=== PATIENT | male | born 1990 | race Caucasian/White ===

== ENCOUNTER 2017-11-13 10:35 | Emergency (ER) | payer OTHER ==
[2017-11-13 11:31] VITALS: RESP 18; TEMP 98.3; O2SAT 100
--- NOTE | 2017-11-13 11:49 | ED PDOC ---
Arrival/HPI - General Chief Complaint: Back Pain Time Seen by Provider: 11/13/17 11:21 Historian: Patient - History of Present Illness Narrative History of Present Illness (Text): 11/13/17 11:48 A 27 year old male presents to the emergency department complaining of bilateral lower back pain for the past few months. Patient states "the pain is in my kidneys", which is exacerbated when sitting up or laying down. He notes his pain has become more constant over the past few days causing him to come in for further evaluation. Patient reports experiencing similar complaints approximately 2 years ago and told he had kidney stones. Patient notes dark colored urine but denies any fever, chills, nausea, vomiting, abdominal pain, chest pain, shortness of breath or any other complaints. Time/Duration: Other (few months) Symptom Course: Worsening (over the past few days) Quality: Other Context: Home Past Medical History - Provider Review Nursing Documentation Reviewed: Yes - Infectious Disease Hx of Infectious Diseases: None - Psychiatric Hx Substance Use: Yes - Surgical History Hx Orthopedic Surgery: Yes (Right middle finger) Family/Social History - Physician Review Nursing Documentation Reviewed: Yes Family/Social History: No Known Family HX Smoking Status: Never Smoked Hx Alcohol Use: Yes Frequency of alcohol use: Few days per week Hx Substance Use: Yes Substance used: Mariquana Allergies/Home Meds Allergies/Adverse Reactions: Allergies No Known Allergies Allergy (Verified 11/13/17 11:07) Review of Systems - Review of Systems Constitutional: absent: Fevers, Night Sweats Respiratory: absent: SOB Cardiovascular: absent: Chest Pain Gastrointestinal: absent: Abdominal Pain, Nausea, Vomiting Genitourinary Male: Other (dark colored urine). absent: Dysuria Musculoskeletal: Back Pain (bilateral lower back pain) Neurological: absent: Headache, Dizziness, Focal Weakness Hemo/Lymphatic: absent: Easy Bleeding Psychiatric: absent: Depression Physical Exam - Physical Exam Narrative Physical Exam (Text): Head: Atraumatic. Normocephalic. Eyes: PERRL. EOMI. Conjunctivae are not pale. ENT: Mucous membranes are moist and intact. Oropharynx is clear and symmetric. Neck: Supple. Full ROM. No JVD. No lymphadenopathy. Cardiovascular: Regular rate. Regular rhythm. No murmurs, rubs, or gallops. Distal pulses are 2+ and symmetric. Pulmonary/Chest: No evidence of respiratory distress. Clear to auscultation bilaterally. No wheezing, rales or rhonchi. Abdominal: Soft and non-distended. There is no tenderness. No rebound, guarding, or rigidity. No organomegaly. Good bowel sounds. Back: Lower lumbar paraspinal tenderness. Positive straight leg test in left lower extremity. No midline tenderness. NO erythema or edema. NO cva tenderness. Extremities: No edema. No cyanosis. No clubbing. Full range of motion in all extremities. No calf tenderness. Skin: Skin is warm and dry. No petechiae. No purpura. Neurological: Alert, awake, and oriented. Motor and sensory exam intact. Psychiatric: Good eye contact. Normal interaction, affect, and behavior. Denies depression. Vital Signs Reviewed: Yes Vital Signs Temp Pulse Resp BP Pulse Ox 11/13/17 14:13 74 18 125/72 100 11/13/17 14:08 74 18 125/72 100 11/13/17 11:25 98.3 F 83 18 132/88 100 Temperature: Afebrile Blood Pressure: Normal Pulse: Regular Respiratory Rate: Normal Appearance: Positive for: Well-Appearing, Non-Toxic, Comfortable Pain Distress: Mild Mental Status: Positive for: Alert and Oriented X 3 Medical Decision Making ED Course and Treatment: 11/13/17 11:48 Impression: A 27 year old male with bilateral lower back pain. Patient notes dark colored urine. Differential Diagnosis included but are not limited to: Lumbar radiculopathy vs. Kidney stone vs. Kidney infection vs. lumbar strain Plan: -- CT abdomen -- Labs -- Urinalysis -- IV fluids -- Reassess and disposition Progress Notes: Patient's abdomen soft and nontender. UA unremarkable. Pain is palpable worse with ROM but no motor or sensory deficits and patient nv intact. Report Date : 11/13/2017 13:00:25 PROCEDURE: CT Abdomen and Pelvis without intravenous contrast Dictator : Sudhir Swan MD IMPRESSION: No evidence of urolithiasis. No acute intra-abdominal findings Given unremarkable UA and CT, suspect likely musculoskeletal etiology of pain. Will d/c with naproxen and follow-up with pmd. 11/15/17 16:29 - Lab Interpretations Lab Results: 11/13/17 12:00 11/13/17 12:00 Lab Results 11/13/17 13:00: Urine Color Yellow, Urine Appearance Clear, Urine pH 7.5, Ur Specific [place] 1.010, Urine Protein Negative, Urine Glucose (UA) Negative, Urine Ketones Negative, Urine Blood Negative, Urine Nitrate Negative, Urine Bilirubin Negative, Urine Urobilinogen 0.2, Ur Leukocyte Esterase Negative 11/13/17 12:00: Sodium 138, Potassium 4.4, Chloride 104, Carbon Dioxide 25, Anion Gap 15, BUN 7, Creatinine 0.7 L, Est GFR ( Amer) > 60, Est GFR (Non -Af Amer) > 60, Random Glucose 79, Calcium 9.6, Total Bilirubin 0.5, AST 27, ALT 36, Alkaline Phosphatase 43, Total Protein 6.3, Albumin 3.9, Globulin 2.3, Albumin/Globulin Ratio 1.7 11/13/17 12:00: WBC 4.7, RBC 5.76, Hgb 12.6 L, Hct 39.3 L, MCV 68.2 L, MCH 21.9 L, MCHC 32.1, RDW 15.6 H, Plt Count 189, MPV 10.5, Gran % 47.8 L, Lymph % (Auto ) 39.9 H, [place] % (Auto) 8.3 H, Eos % (Auto) 3.6, Baso % (Auto) 0.4, Gran # 2.25 , Lymph # 1.9, [place] # 0.4, Eos # 0.2, Baso # 0.02 I have reviewed the lab results: Yes - RAD Interpretation Radiology Orders: 11/13/17 11:49 ABD & PELVIS W/O PO OR IV CONT [CT] Stat - Medication Orders Current Medication Orders: Discontinued Medications Sodium Chloride (Sodium Chloride 0.9%) 1,000 mls @ 100 mls/hr IV .Q10H LUCIO Last Admin: 11/13/17 12:07 Dose: 100 mls/hr eMAR Start Stop Document 11/13/17 12:07 EQ (Rec: 11/13/17 12:07 EQ [facility] [id number][place] Intravenous Solution Start Date 11/13/17 Start Time 12:07 - Scribe Statement The provider has reviewed the documentation as recorded by the Slimibmonisha Downey Provider Scribe Attestation: All medical record entries made by the Scribe were at my direction and personally dictated by me. I have reviewed the chart and agree that the record accurately reflects my personal performance of the history, physical exam, medical decision making, and the department course for this patient. I have also personally directed, reviewed, and agree with the discharge instructions and disposition. Disposition/Present on Arrival - Present on Arrival Any Indicators Present on Arrival: No History of DVT/PE: No History of Uncontrolled Diabetes: No Urinary Catheter: No History of Decub. Ulcer: No History Surgical Site Infection Following: None - Disposition Have Diagnosis and Disposition been Completed?: Yes Diagnosis: Back pain Disposition: HOME/ ROUTINE Disposition Time: 14:00 Patient Plan: Discharge Condition: GOOD Discharge Instructions (ExitCare): Back Pain (ED) Additional Instructions: For any fevers, any chest pain, any shortness of breath, any abdominal pain, any nausea or vomiting, any numbness or tingling, any headaches, any persistent or worsening of any symptoms, get rechecked. Follow-up with your primary care doctor in 1-2 days. Prescriptions: Naproxen 250 mg PO BID PRN #10 tablet PRN Reason: Pain, Mild (1-3) Referrals: [facility] [place] - [facility] [[facility]] - Follow up with primary Forms: [employer] Connect ([place]), WORK NOTE
[2017-11-13] MEDS ORDERED: Sodium Chloride 0.9% 1,000 ML IV SCH (12:00)
[2017-11-13 12:14] LABS: BASO # 0.02 K/mm3 (0.0-2.0); BASO % 0.4 % (0.0-3.0); EOS # 0.2 (0.0-0.7); EOS % 3.6 % (1.5-5.0); GRAN # 2.25 (1.4-6.5); GRAN % 47.8 % (50.0-68.0); HEMOGLOBIN 12.6 g/dL (14.0-18.0); LYMPH # 1.9 (1.2-3.4); LYMPH % 39.9 % (22.0-35.0); MEAN CELL VOLUME 68.2 fl (80.0-105.0); MEAN CORPUSCULAR HEMOGLOBIN 21.9 pg (25.0-35.0); MEAN CORPUSCULAR HGB CONC 32.1 g/dl (31.0-37.0); MEAN PLATELET VOLUME 10.5 fl (7.0-11.0); MONO # 0.4 (0.1-0.6); MONO % 8.3 % (1.0-6.0); RBC 5.76 10^6/uL (3.5-6.1); RED CELL DISTRIBUTION WIDTH 15.6 % (11.5-14.5); WHITE BLOOD COUNT 4.7 10^3/ul (4.5-11.0)
[2017-11-13 12:23] LABS: ALB/GLOB RATIO 1.7 (1.1-1.8); ALBUMIN 3.9 g/dL (3.0-4.8); ALT/SGPT 36 U/L (7-56); AST/SGOT 27 U/L (17-59); BLOOD UREA NITROGEN 7 mg/dL (7-21); CALCIUM 9.6 mg/dL (8.4-10.5); GFR AFRICAN-AMERICAN > 60; GFR NON-AFRICAN AMERICAN > 60
--- NOTE | 2017-11-13 13:02 | CT ---
PROCEDURE: CT Abdomen and Pelvis without intravenous contrast HISTORY: flank pain, urinary symptoms COMPARISON: None. TECHNIQUE: Without contrast.. Contrast Dose: Radiation dose: Total exam DLP = 318 mGy-cm. This CT exam was performed using one or more of the following dose reduction techniques: Automated exposure control, adjustment of the mA and/or kV according to patient size, and/or use of iterative reconstruction technique. FINDINGS: LOWER THORAX: Unremarkable. LIVER: Unremarkable. No gross lesion or ductal dilatation. GALLBLADDER AND BILE DUCTS: Unremarkable. PANCREAS: Unremarkable. No gross lesion or ductal dilatation. SPLEEN: Unremarkable. ADRENALS: Unremarkable. No mass. KIDNEYS AND URETERS: Unremarkable. No hydronephrosis. No solid mass. VASCULATURE: Unremarkable. No aortic aneurysm. BOWEL: Unremarkable. No obstruction. No gross mural thickening. The study is limited by lack of IV and oral contrast and lack of abdominal fat APPENDIX: Unremarkable. Normal appendix. PERITONEUM: Unremarkable. No free fluid. No free air. LYMPH NODES: Unremarkable. No enlarged lymph nodes. BLADDER: Unremarkable. REPRODUCTIVE: Unremarkable. BONES: No acute fracture. OTHER FINDINGS: None. IMPRESSION: No evidence of urolithiasis. No acute intra-abdominal findings
[2017-11-13 13:26] LABS: PH,URINE 7.5 (4.7-8.0); URINE BILIRUBIN NEGATIVE (NEGATIVE); URINE BLOOD NEGATIVE (NEGATIVE); URINE GLUCOSE (UA) NEGATIVE (NEGATIVE); URINE LEUKOCYTE ESTERASE NEGATIVE Leu/uL (NEGATIVE); URINE NITRATE NEGATIVE (NEGATIVE); URINE PROTEIN NEGATIVE mg/dL (<30 mg/dL); URINE UROBILINOGEN 0.2 E.U./dL (<1 E.U./dL)
[2017-11-13 13:27] LABS: URINE APPEARANCE CLEAR (CLEAR); URINE COLOR YELLOW (YELLOW)
[2017-11-13 14:09] VITALS: BP 125/72; PULSE 74
== END 2017-11-13 14:14 | disposition home or self-care (01) ==
LOC: ED 10:35
DX: M54.5 Low back pain (principal)
CPT/HCPCS: 74176; 80053; 81003; 85025; 99283; J7040

== ENCOUNTER 2018-03-10 18:37 | Emergency (ER) | payer OTHER ==
[2018-03-10 19:12] VITALS: BMI 23.1
[2018-03-10] MEDS ORDERED: Lidocaine 1% Inj (20ml) ONE (19:39)
[2018-03-10 19:45] LABS: BASO # 0.02 K/mm3 (0.0-2.0); BASO % 0.2 % (0.0-3.0); EOS # 0.1 (0.0-0.7); EOS % 0.5 % (1.5-5.0); GRAN # 5.71 (1.4-6.5); GRAN % 60.5 % (50.0-68.0); HEMOGLOBIN 13.1 g/dL (14.0-18.0); LYMPH # 3.1 (1.2-3.4); MEAN CELL VOLUME 67.3 fl (80.0-105.0); MEAN CORPUSCULAR HEMOGLOBIN 22.3 pg (25.0-35.0); MEAN CORPUSCULAR HGB CONC 33.2 g/dl (31.0-37.0); MEAN PLATELET VOLUME 9.8 fl (7.0-11.0); MONO # 0.6 (0.1-0.6); MONO % 5.8 % (1.0-6.0); RBC 5.87 10^6/uL (3.5-6.1); RED CELL DISTRIBUTION WIDTH 15.3 % (11.5-14.5); WHITE BLOOD COUNT 9.5 10^3/ul (4.5-11.0)
[2018-03-10 19:56] LABS: INR 1.03 (0.93-1.08); PARTIAL THROMBOPLASTIN TIME 27.4 Seconds (25.1-36.5); PROTHROMBIN TIME 11.7 SECONDS (9.4-12.5)
[2018-03-10 19:57] LABS: ALB/GLOB RATIO 1.7 (1.1-1.8); ALBUMIN 4.2 g/dL (3.0-4.8); ALT/SGPT 29 U/L (7-56); AST/SGOT 29 U/L (17-59); BLOOD UREA NITROGEN 11 mg/dL (7-21); CALCIUM 9.2 mg/dL (8.4-10.5); GFR AFRICAN-AMERICAN > 60; GFR NON-AFRICAN AMERICAN > 60; LIPASE 176 U/L (23-300)
--- NOTE | 2018-03-10 20:04 | CP.PCM.CON ---
<Carol Ann Ashford - Last Filed: 03/10/18 20:27> History of Present Illness - History of Present Illness History of Present Illness: General surgery consult for Dr. Wood-Carol Ann Ashford, PGY-1 Pt S & E at bedside at 1933 27M w/PMH sig for Right inguinal hernia consulted for right groin pain x 2 days. Pt reports that over the past few days he noted pain, constant, non radiating, worsening in intensity. Aggravated by movement, alleviating by not moving. Denies N & V, F & C, changes in bowel or bladder habits, chest pain, SOB , other complaints. In ED- no leukocytosis, afebrile PMH: Right inguinal hernia- reducible PSH: Right finger sx, Right facial lesion exision near ear All: Denies SH: Occasional ETOH use - 1 beer /week, admits to tobacco use - 1ppd x 6 yrs. Denies illcit drug use FH: Non contributory PMD: Rajwinder Foley Review of Systems - Review of Systems All systems: reviewed and no additional remarkable complaints except - Constitutional Constitutional: absent: Chills, Fever - EENT Nose/Mouth/Throat: absent: Sore Throat - Cardiovascular Cardiovascular: absent: Chest Pain, Leg Edema - Respiratory Respiratory: absent: Cough - Gastrointestinal Gastrointestinal: absent: Abdominal Pain, Change in Bowel Habits, Constipation, Diarrhea, Nausea, Vomiting - Genitourinary Genitourinary: absent: Change in Urinary Stream - Musculoskeletal Musculoskeletal: absent: Numbness, Tingling - Integumentary Integumentary: absent: Rash - Neurological Neurological: absent: Weakness - Psychiatric Psychiatric: absent: Change in Appetite Past Patient History - Infectious Disease Hx of Infectious Diseases: None - Past Social History Smoking Status: Never Smoked - PSYCHIATRIC Hx Substance Use: Yes - SURGICAL HISTORY Hx Surgeries: No Hx Orthopedic Surgery: Yes (Right middle finger) - ANESTHESIA Hx Anesthesia: No Meds Allergies/Adverse Reactions: Allergies Allergy/AdvReac Type Severity Reaction Status Date / Time No Known Allergies Allergy Verified 11/13/17 11:07 Physical Exam - Constitutional Appears: Non-toxic, No Acute Distress - Head Exam Head Exam: ATRAUMATIC, NORMAL INSPECTION, NORMOCEPHALIC - Eye Exam Eye Exam: EOMI, Normal appearance - ENT Exam ENT Exam: Mucous Membranes Moist, Normal Exam - Neck Exam Neck exam: Positive for: Full Rom, Normal Inspection - Respiratory Exam Respiratory Exam: Clear to Auscultation Bilateral, NORMAL BREATHING PATTERN - Cardiovascular Exam Cardiovascular Exam: REGULAR RHYTHM, +S1, +S2 - GI/Abdominal Exam GI & Abdominal Exam: Normal Bowel Sounds, Soft. absent: Distended, Firm, Guarding, Hernia, Tenderness - Exam Additional comments: right groin/proximal scrotal sac with small area of erythema, approximately 4cm circumference with central fluctuance, surrounding induration, visible white material under skin in center. Very tender to palpation. No hernia noted - Extremities Exam Extremities exam: Positive for: normal inspection. Negative for: pedal edema - Neurological Exam Neurological exam: Alert, CN II-XII Intact, Oriented x3 - Psychiatric Exam Psychiatric exam: Normal Affect, Normal Mood - Skin Skin Exam: Dry, Intact, Normal Color, Warm Additional comments: see exam for skin findings Results - Vital Signs Recent Vital Signs: Last Vital Signs Temp 98.6 F 03/10/18 19:11 Pulse 70 03/10/18 19:11 Resp 18 03/10/18 19:11 BP 118/66 03/10/18 19:11 Pulse Ox 98 03/10/18 19:11 - Labs Result Diagrams: 03/10/18 19:19 03/10/18 19:32 Labs: Laboratory Results - last 24 hr 03/10/18 03/10/18 03/10/18 19:19 19:19 19:32 WBC 9.5 D RBC 5.87 Hgb 13.1 L Hct 39.5 L MCV 67.3 L MCH 22.3 L MCHC 33.2 RDW 15.3 H Plt Count 183 MPV 9.8 Gran % 60.5 Lymph % (Auto) 33.0 [place] % (Auto) 5.8 Eos % (Auto) 0.5 L Baso % (Auto) 0.2 Gran # 5.71 Lymph # (Auto) 3.1 [place] # (Auto) 0.6 Eos # (Auto) 0.1 Baso # (Auto) 0.02 PT 11.7 INR 1.03 APTT 27.4 Sodium 144 Potassium 3.9 Chloride 106 Carbon Dioxide 27 Anion Gap 15 BUN 11 Creatinine 0.7 L Est GFR ( Amer) > 60 Est GFR (Non-Af Amer) > 60 Random Glucose 85 Calcium 9.2 Magnesium 1.9 Total Bilirubin 0.1 L AST 29 ALT 29 Alkaline Phosphatase 44 Total Protein 6.6 Albumin 4.2 Globulin 2.5 Albumin/Globulin Ratio 1.7 Lipase 176 Assessment & Plan - Assessment and Plan (Free Text) Assessment: 27M w/PMH sig for Right inguinal hernia with small abscess of right groin Plan: Recommend bedside I & D for small abscess ED attending elected to perform procedure No further surgical intervention at this time Will DW attending [place], PGY-1 - Date & Time Date: 03/10/18 Time: 19:30 <Darryl Wood - Last Filed: 03/11/18 19:59> Results - Vital Signs Recent Vital Signs: Last Vital Signs Temp 98.1 F 03/10/18 21:17 Pulse 78 03/10/18 21:17 Resp 17 03/10/18 21:17 BP 106/75 03/10/18 21:17 Pulse Ox 100 03/10/18 21:17 - Labs Result Diagrams: 03/10/18 19:19 03/10/18 19:32 Labs: Laboratory Results - last 24 hr 03/10/18 03/10/18 19:19 19:32 PT 11.7 INR 1.03 APTT 27.4 Sodium 144 Potassium 3.9 Chloride 106 Carbon Dioxide 27 Anion Gap 15 BUN 11 Creatinine 0.7 L Est GFR ( Amer) > 60 Est GFR (Non-Af Amer) > 60 Random Glucose 85 Calcium 9.2 Magnesium 1.9 Total Bilirubin 0.1 L AST 29 ALT 29 Alkaline Phosphatase 44 Total Protein 6.6 Albumin 4.2 Globulin 2.5 Albumin/Globulin Ratio 1.7 Lipase 176 Attending/Attestation - Attestation I have fully participated in the care of the patient.: Yes I have reviewed all pertinent clinical information: Yes Notes (Text): Pt with right inguinal hernia and gronin abscess S/P I & D by ER physician Labs and radiology reviewed Ass: Groin abscess s/p I & D in ER PO antibiotics No acute general surgery consult required Plan d.w pt in detail.
[2018-03-10 21:18] VITALS: BP 106/75; PULSE 78; RESP 17; TEMP 98.1; O2SAT 100
--- NOTE | 2018-03-10 21:47 | ED PDOC ---
Arrival/HPI - General Chief Complaint: Abdominal Pain Time Seen by Provider: 03/10/18 18:39 Historian: Patient - History of Present Illness Narrative History of Present Illness (Text): 03/10/18 18:52 A 27 year old male, with no significant past medical history, presents to the emergency department complaining of swelling to right side testicle. Patient denies any trauma, penile discharge, hematuria or any other complaints. Also, patient mentions having a hernia in the past. No PMD Past Medical History - Provider Review Nursing Documentation Reviewed: Yes - Infectious Disease Hx of Infectious Diseases: None - Psychiatric Hx Substance Use: Yes - Surgical History Hx Orthopedic Surgery: Yes (Right middle finger) - Anesthesia Hx Anesthesia: No Family/Social History - Physician Review Nursing Documentation Reviewed: Yes Family/Social History: No Known Family HX Smoking Status: Never Smoked Hx Alcohol Use: Yes Hx Substance Use: Yes Substance used: Mariquana Allergies/Home Meds Allergies/Adverse Reactions: Allergies No Known Allergies Allergy (Verified 11/13/17 11:07) Review of Systems - Physician Review All systems were reviewed & negative as marked: Yes - Review of Systems Constitutional: absent: Fevers Gastrointestinal: absent: Abdominal Pain Genitourinary Male: Other (swelling to right side testicle; no penile discharge according to patient.). absent: Hematuria Physical Exam Vital Signs Reviewed: Yes Vital Signs Temp Pulse Resp BP Pulse Ox 03/10/18 21:17 98.1 F 78 17 106/75 100 03/10/18 19:11 98.6 F 70 18 118/66 98 Temperature: Afebrile Blood Pressure: Normal Pulse: Regular Respiratory Rate: Normal Appearance: Positive for: Well-Appearing Pain Distress: None Mental Status: Positive for: Alert and Oriented X 3 - Systems Exam Mouth: Present: Moist Mucous Membranes Respiratory/Chest: Present: Clear to Auscultation, Good Air Exchange. No: Respiratory Distress, Accessory Muscle Use Cardiovascular: Present: Regular Rate and Rhythm, Normal S1, S2. No: Murmurs Abdomen: No: Tenderness, Distention, Peritoneal Signs Genitourinary Male: Present: Testicle Swelling (fluctuant abscess to right-side scrotum). No: Penile Discharge Upper Extremity: Present: Normal Inspection. No: Cyanosis, Edema Lower Extremity: Present: Normal Inspection. No: Edema Neurological: Present: GCS=15, CN II-XII Intact, Speech Normal Skin: Present: Warm, Dry, Normal Color. No: Rashes Psychiatric: Present: Alert, Oriented x 3, Normal Insight, Normal Concentration Medical Decision Making ED Course and Treatment: 03/10/18 18:56 Impression: 27 year old male with right-side testicular swelling. Physical exam shows fluctuant abscess to right-side scrotum; no penile discharge; no other acute findings to examination. Plan: -- Labs -- I&D procedure -- Reassess and disposition Progress Notes: Procedure: Incision & Drainage Performed by the emergency provider Indication: Abscess Location: Right-side scrotum Preparation: The area was prepped and draped in the usual sterile fashion and was cleansed. Local infiltration of Lidocaine 1% with Ep was used for anesthesia. Procedure: The most fluctuant portion of the abscess was incised with a #11 scalpel. The abscess was packed. A dressing was applied by the RN. Post-Procedure: On exam the abscess is notably less fluctuant. The patient tolerated the procedure well, and there were no complications. - Lab Interpretations Lab Results: 03/10/18 19:19 03/10/18 19:32 Lab Results 03/10/18 19:32: Sodium 144, Potassium 3.9, Chloride 106, Carbon Dioxide 27, Anion Gap 15, BUN 11, Creatinine 0.7 L, Est GFR ( Amer) > 60, Est GFR ( Non-Af Amer) > 60, Random Glucose 85, Calcium 9.2, Magnesium 1.9, Total Bilirubin 0.1 L, AST 29, ALT 29, Alkaline Phosphatase 44, Total Protein 6.6, Albumin 4.2, Globulin 2.5, Albumin/Globulin Ratio 1.7, Lipase 176 03/10/18 19:19: PT 11.7, INR 1.03, APTT 27.4 03/10/18 19:19: WBC 9.5 D, RBC 5.87, Hgb 13.1 L, Hct 39.5 L, MCV 67.3 L, MCH 22.3 L, MCHC 33.2, RDW 15.3 H, Plt Count 183, MPV 9.8, Gran % 60.5, Lymph % ( Auto) 33.0, [place] % (Auto) 5.8, Eos % (Auto) 0.5 L, Baso % (Auto) 0.2, Gran # 5.71, Lymph # (Auto) 3.1, [place] # (Auto) 0.6, Eos # (Auto) 0.1, Baso # (Auto) 0.02 - Scribe Statement The provider has reviewed the documentation as recorded by the Nito Chun Provider Scribe Attestation: All medical record entries made by the Scribe were at my direction and personally dictated by me. I have reviewed the chart and agree that the record accurately reflects my personal performance of the history, physical exam, medical decision making, and the department course for this patient. I have also personally directed, reviewed, and agree with the discharge instructions and disposition. Disposition/Present on Arrival - Present on Arrival Any Indicators Present on Arrival: No History of DVT/PE: No History of Uncontrolled Diabetes: No Urinary Catheter: No History of Decub. Ulcer: No History Surgical Site Infection Following: None - Disposition Have Diagnosis and Disposition been Completed?: Yes Diagnosis: Abscess Disposition: HOME/ ROUTINE Disposition Time: 20:10 Condition: IMPROVED Discharge Instructions (ExitCare): Abscess Incision and Drainage Additional Instructions: Thank you for letting us take care of you today. The emergency medical care you received today was directed at your acute symptoms. If you were prescribed any medication, please fill it and take as directed. It may take several days for your symptoms to resolve. Return to the Emergency Department if your symptoms worsen, do not improve, or if you have any other problems. Please contact your doctor or call one of the physicians/clinics you have been referred to that are listed on the Patient Visit Information form that is included in your discharge packet. Bring any paperwork you were given at discharge with you along with any medications you are taking to your follow up visit. Our treatment cannot replace ongoing medical care by a primary care provider (PCP) outside of the emergency department. Thank you for allowing the [facility] team to be part of your care today. Follow up with your doctor tomorrow morning for wound check and further management. Prescriptions: Cephalexin [cephalexin] 500 mg PO TID #21 cap Ibuprofen [Motrin] 600 mg PO Q6 PRN #20 tab PRN Reason: Pain, Moderate (4-7) Sulfamethoxazole/Trimethoprim [Bactrim Ds Tablet] 1 each PO BID #14 tablet [facility] - Follow up with primary Forms: [employer] (C[place]), WORK NOTE
== END 2018-03-10 21:05 | disposition home or self-care (01) ==
LOC: ED 18:37
DX: N49.2 Inflammatory disorders of scrotum (principal)